=== PATIENT | female | born 2000 | race Caucasian/White ===

== ENCOUNTER → 2022-11-13 15:24 | Outpatient (CLI) | payer OTHER, SELFPAY ==
[2022-11-13 17:43] LABS: Add Manual Diff / Slide Review NO; Basophils Absolute Auto 0 /uL (0-100); Basophils Percent Auto 0.3 % (0-2); Eosinophils Absolute Auto 0 /uL (0-450); Eosinophils Percent Auto 0.5 % (2-4); Hematocrit 37.6 % (36-46); Hemoglobin 12.9 g/dL (12.0-16.0); Lymphocytes Absolute Auto 1500 /uL (1100-4500); Lymphocytes Percent Auto 20.9 % (25-40); Mean Corpuscular HGB Conc 34.3 % (30-36); Mean Corpuscular Hemoglobin 28.8 PG (26-34); Mean Corpuscular Volume 83.8 fL (80-100); Monocytes Absolute Auto 500 /uL (0-900); Monocytes Percent Auto 6.7 % (3-14); Neutrophils Absolute Auto 5200 /uL (1500-7000); Neutrophils Percent Auto 71.6 % (50-75); Platelet Count 182 X10^3/uL (150-400); Red Blood Cell Count 4.49 X10^6/uL (4.0-5.2); Red Cell Distribution Width 14.2 % (11.6-14.8); White Blood Cell Count 7.3 X10^3/uL (4.5-11.0)
[2022-11-15 04:09] LABS: RPR Screen Non Reactive (Non Reactive)
[2022-11-15 11:27] LABS: Varicella IgG Antibody 1784 index (Immune >165)
[2022-11-15 16:25] LABS: Hepatitis B Surface Antigen NEGATIVE s/c (NEGATIVE); Rubella Antibody IgG 59.5 IU/mL (>15)
[2022-11-15 16:41] LABS: HIV 1 & 2 Ab/Ag 4th Gen Combo NEGATIVE (NEGATIVE); Hep C Virus Ab w/Reflex Quant NEGATIVE s/c (NEGATIVE)
== END ==
PROVIDERS: Referring Provider Obstetrics & Gynecology; Visit Provider Obstetrics & Gynecology
DX: Z34.81 Encounter for supervision of other normal pregnancy, first trimester (principal)
CPT/HCPCS: 36415; 80055; 86787; 86803; 86850; 86900; 86901; 87389

== ENCOUNTER → 2023-01-24 08:22 | Outpatient (CLI) | payer OTHER, SELFPAY ==
--- NOTE | 2023-01-24 08:22 | DI.US.S_ITS ---
PROCEDURE: US OB >= 14 WEEKS FETUS INDICATIONS: ANATOMY OUTSIDE/PRIOR DATING DATA: Last menstrual period (LMP): 09/03/2022. LMP-based estimated date of delivery (PATRICIA): 06/10/2023. First dating scan (date and location): 11/13/2022 at . Estimated date of delivery (PATRICIA) from first dating scan: 06/13/2023. The calculations are made using the working PATRICIA of 06/10/2023. TECHNIQUE: Real-time scanning was performed of the fetus, with image documentation and biometric measurements. COMPARISON: [facility], , OB <= 14 WEEKS FETUS, 11/13/2022, 15:06. [facility], , OB LIMITED, 12/29/2022, 12:39. FINDINGS: General: A single living intrauterine gestation is present. Presentation: Vertex. Placenta: Placental position is posterior , without previa. Amniotic fluid index: 14.7 cm, normal range is 5-24 cm. Single deepest vertical pocket is 4.8 cm. heart rate: 145 beats per minute. Maternal cervical canal: 3 point cm long. Normal lower limit is 2.5 cm. biometrics: Biparietal diameter: 20 weeks 4 days Head circumference: 19 weeks 3 days ([place] 8%) Abdominal circumference: 19 weeks 2 days Femur length: 20 weeks 3 days Clinically estimated gestational age: 20 weeks 3 days Composite gestational age from present scan: 20 weeks 0 day Estimated weight and percentile: 317 g; 18% for gestation age. Anatomic survey: Neuro: Ventricles are non-dilated at less than 10 mm. Cisterna magna is normal at 3-11 mm. Cerebellum is normal in size and morphology. Nuchal skin fold: Normal at less than 6 mm between 14-21 weeks gestational age. Face: Nose and lips, facial profile are normal. Spine: No evidence for spina bifida. Heart: 4-chambered heart is present, with normal ventricular outflow tracts. Diaphragm: Diaphragm is intact. Stomach: Left-sided stomach is present. Kidneys: No hydronephrosis. Normal is less than 5 mm in 2nd trimester, less than 7 mm in 3rd trimester. Cord: 3-vessel cord has orthotopic insertion. Bladder: Normal in size. Extremities: All 4 extremities identified. IMPRESSION: 1. A single living intrauterine gestation with appropriate interval growth. 2. Normal anatomic survey. 3. Head circumference at 8% and estimated weight at 18%. We strive to produce accurate, complete, and clear reports of imaging services. To assist us in improving patient care, this report was composed using standard report templates and voice recognition software. Therefore, it may contain abnormal punctuation, insertions and/or omissions. Occasional wrong-word or sound-alike substitutions may occur. Though we review the report and make efforts to correct it, we do recommend that the report be read carefully in proper context to recognize any text inaccuracies. Dictated by: Jayjay Torres M.D. on 01/24/2023 at 16:49 Approved by: Jayjay Torres M.D. on 01/24/2023 at 16:55
== END ==
PROVIDERS: Referring Provider Obstetrics & Gynecology; Visit Provider Obstetrics & Gynecology
DX: Z34.82 Encounter for supervision of other normal pregnancy, second trimester (principal); Z3A.20 20 weeks gestation of pregnancy
CPT/HCPCS: 36415; 76811; 76817; 82105

== ENCOUNTER → 2023-01-24 09:47 | Outpatient (CLI) | payer OTHER, SELFPAY ==
[2023-01-26 21:15] LABS: Gest Age on Col Date 20.4 weeks (.); Insulin Dep Diabetes No (.); OSBR Risk 1IN 10000 (.); Results Report (.); Test Results *Screen Negative* (.)
== END ==
PROVIDERS: Referring Provider Obstetrics & Gynecology; Visit Provider Obstetrics & Gynecology
DX: Z34.92 Encounter for supervision of normal pregnancy, unspecified, second trimester (principal); Z3A.18 18 weeks gestation of pregnancy
CPT/HCPCS: 36415; 82105

== ENCOUNTER → 2023-03-11 13:10 | Outpatient (CLI) | payer OTHER, SELFPAY | PROVIDERS: Visit Provider Obstetrics & Gynecology | DX: Z34.00 Encounter for supervision of normal first pregnancy, unspecified trimester (principal) | CPT/HCPCS: 87086 ==

== ENCOUNTER → 2023-03-13 08:14 | Outpatient (CLI) | payer OTHER, SELFPAY ==
[2023-03-13 10:24] LABS: Hematocrit 36.3 % (36-46); Hemoglobin 12.4 g/dL (12.0-16.0)
[2023-03-13 11:22] LABS: GTT (PREG) 1 Hour PP 50gm Dose 94 mg/dL (76-139)
== END ==
PROVIDERS: Referring Provider Obstetrics & Gynecology; Visit Provider Obstetrics & Gynecology
DX: Z34.02 Encounter for supervision of normal first pregnancy, second trimester (principal); Z3A.26 26 weeks gestation of pregnancy
CPT/HCPCS: 36415; 82950; 85014; 85018

== ENCOUNTER 2023-04-23 11:32 | Outpatient (CLI) | payer OTHER, SELFPAY ==
[2023-04-23 11:47] LABS: Appearance Urine UA SL CLOUDY; Bilirubin Urine UA NEGATIVE (NEGATIVE); Color Urine UA YELLOW; Glucose Urine UA NEGATIVE (Negative); Ketones Urine UA NEGATIVE (NEGATIVE); Leukocyte Esterase Urine UA 3+ (NEGATIVE); Nitrite Urine UA NEGATIVE (Negative); Occult Blood Urine UA NEGATIVE (Negative); Protein Urine UA NEGATIVE (Negative); Urobilinogen Urine UA 0.2 E.U./dL (0.2)
[2023-04-23 11:57] LABS: Bacteria Urine Many (>30); Culture Indicated Urine Specimen Cultured; RBC Urine 0-1/HPF (0-5/HPF); Squamous Epithelial Cell Urine 10-30 /HPF (0-5/HPF); WBC Urine 10-30/HPF (0-5/HPF)
[2023-04-23] MEDS: cefTRIAXone 2,000 MG VIAL 1000 MG IM (12:51)
== END 2023-04-23 13:01 | disposition home or self-care (01) ==
LOC: LABOR 12:37 → OB 04-25 15:05
PROVIDERS: Referring Provider Obstetrics & Gynecology; Visit Provider Obstetrics & Gynecology
DX: O26.893 Other specified pregnancy related conditions, third trimester (principal); R10.9 Unspecified abdominal pain; R25.2 Cramp and spasm; Z3A.33 33 weeks gestation of pregnancy
CPT/HCPCS: 59025; 81001; 87086; 96372; G0378; G0379; J0696

== ENCOUNTER → 2023-05-24 11:38 | Outpatient (CLI) | payer OTHER, SELFPAY ==
[2023-05-25 07:37] LABS: Strep Grp B PCR NEG for Grp B Strep
== END ==
PROVIDERS: Visit Provider Obstetrics & Gynecology
DX: Z34.03 Encounter for supervision of normal first pregnancy, third trimester (principal); Z3A.37 37 weeks gestation of pregnancy
CPT/HCPCS: 87653

== ENCOUNTER 2023-06-03 19:55 | Outpatient (CLI) | payer OTHER, SELFPAY | END 2023-06-03 20:50 | disposition home or self-care (01) | LOC: OB 06-19 08:01 | PROVIDERS: Referring Provider Obstetrics & Gynecology; Visit Provider Obstetrics & Gynecology | DX: O42.92 Full-term premature rupture of membranes, unspecified as to length of time between rupture and onset of labor (principal); Z3A.39 39 weeks gestation of pregnancy | CPT/HCPCS: G0378; G0379 ==

== ENCOUNTER 2023-06-06 19:32 | Outpatient (CLI) | payer OTHER, SELFPAY ==
--- NOTE | 2023-06-06 20:28 | PM.OBTRLD ---
Visit Information Visit Information Date of evaluation: 06/06/23 Primary OB Provider: Patsy Irizarry On-call OB Provider: Haley Glasgow Reason for Evaluation: Yes rule out labor Comments/Additional reasons for admission: Jeanne is a 22yo at 39 weeks 3 days for an evaluation of labor. She was seen in clinic today and was found to be 4cm and abby irregularly, sent over for evaluation. She did not come in until tonight; she continues to feel mild irregular contractions, no vaginal bleeding or leakage of fluid, normal movement. Uncomplicated PRN with Dr. Irizarry. Vital Signs Vital Signs: BP: 111/66 mmHg HR: 90 bpm T: 36.9C PFSH Medical History Myopia Surgical History Anesthesia History of appendectomy [place] teeth extracted Family History Grandmother Diabetes mellitus Mental health problem Grandfather Pancreatic cancer Grandfather Hyperlipidemia Grandmother Hypertension Heart disease Mental health problem Father Hypertension Hyperlipidemia Mental health problem Mother Mental health problem Grandfather Hypertension Social History marital status: number of children: 0 household members: spouse lives independently: Yes caregiver/support person: No housing: apartment pets and animals: Yes (1 cat, managing litter box) education level: high school occupational status: employed current occupational exposures/hazards: No special mechelle needs: No travel history: recent (domestic only) seatbelt use: always water heater temp set < 120 deg: Yes working smoke detector in home: Yes fire extinguisher in home: Yes carbon monox detector in home: Yes firearms in home: No do you feel safe at home: Yes Smoking Status: Never smoker second hand exposure: No alcohol intake: former (rarely when not ) substance use type: does not use during the past year weight has: remained stable well-balanced diet: about half the time daily servings fruits/ve-4 caffeine: Yes (quit with , aware of 200mg limit) Type(s) of exercise: walking and weight lifting Review of Systems Review of Systems ROS: Yes All systems reviewed with the patient and are negative except as otherwise documented Exam Vital Signs (past 8 hours): see above Presentation: vertex Evaluation Evaluation Baseline heart rate: 120 Variability: Moderate (11-25) monitor accelerations: Present Monitor Decelerations: Absent Contraction Frequency (minutes): 10 Uterine Contraction Intensity: Mild Category of Tracing: Reactive Cervical dilation (cm): 4 Cervical effacement (%): 70 station: -2 Diagnosis, Plan/Disposition Final Diagnosis (1) False labor after 37 completed weeks of gestation: Status: Acute Plan/Disposition Plan: P: Discharge to home, routine labor precautions reviewed Encourage patient to call if contractions 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
== END 2023-06-06 20:35 | disposition home or self-care (01) ==
LOC: OB 06-19 08:02
PROVIDERS: Referring Provider Specialist; Visit Provider Specialist
DX: O47.1 False labor at or after 37 completed weeks of gestation (principal); Z3A.39 39 weeks gestation of pregnancy
CPT/HCPCS: 59025; G0378; G0379

== ENCOUNTER 2023-06-08 11:35 | Observation (INO) | payer OTHER, SELFPAY ==
[2023-06-08 13:03] LABS: COVID19 -Nasal RAPID Negative (Negative)
--- NOTE | 2023-06-10 08:08 | P.TNLD_ITS ---
Visit Information Visit Information Date of evaluation: 06/08/23 On-call OB Provider: Howard Thrasher Reason for Evaluation: Yes non-stress test and Yes rupture of membranes Comments/Additional reasons for admission: Patient gives a history decreased motion as well as nausea and vomiting. She also has flu-like symptoms at this time. Upon further questioning she is noted some vaginal discharge. Vital Signs Vital Signs: Blood pressure 102/59 pulse 89 temperature 36.4? PFSH Medical History Myopia Surgical History Anesthesia History of appendectomy [place] teeth extracted Family History Grandmother Diabetes mellitus Mental health problem Grandfather Pancreatic cancer Grandfather Hyperlipidemia Grandmother Hypertension Heart disease Mental health problem Father Hypertension Hyperlipidemia Mental health problem Mother Mental health problem Grandfather Hypertension Social History marital status: number of children: 0 household members: spouse lives independently: Yes caregiver/support person: No housing: apartment pets and animals: Yes (1 cat, managing litter box) education level: high school occupational status: employed current occupational exposures/hazards: No special mechelle needs: No travel history: recent (domestic only) seatbelt use: always water heater temp set < 120 deg: Yes working smoke detector in home: Yes fire extinguisher in home: Yes carbon monox detector in home: Yes firearms in home: No do you feel safe at home: Yes Smoking Status: Never smoker second hand exposure: No alcohol intake: former (rarely when not ) substance use type: does not use during the past year weight has: remained stable well-balanced diet: about half the time daily servings fruits/ve-4 caffeine: Yes (quit with , aware of 200mg limit) Type(s) of exercise: walking and weight lifting Objective Labs Labs: ROM plus was negative COVID-19 test was negative Evaluation Evaluation Variability: Moderate (11-25) monitor accelerations: Present Monitor Decelerations: Absent Contraction Frequency (minutes): 0 Category of Tracing: Reactive Status: Category l Non-invasive Membranes Rupture Test: negative Diagnosis, Plan/Disposition Final Diagnosis (1) Flu: Status: Acute Problem details: Patient has noted some decreased motion. Her NST was very reactive. Her ROM plus was also negative. Have patient encouraged to increase fluids take Tylenol for aches and pains. She is also been told that should things worsen she should return for further evaluation.
== END 2023-06-08 13:20 | disposition home or self-care (01) ==
LOC: LABOR 11:38
PROVIDERS: Admitting Provider Obstetrics & Gynecology; Referring Provider Obstetrics & Gynecology; Visit Provider Obstetrics & Gynecology
DX: J11.1 Influenza due to unidentified influenza virus with other respiratory manifestations (principal); Z20.822 Contact with and (suspected) exposure to COVID-19
CPT/HCPCS: 59025; 84112; 87635; C9803; G0378; G0379

== ENCOUNTER 2023-06-11 03:53 | Inpatient (IN) | payer OTHER, SELFPAY ==
[2023-06-11 05:10] LABS: Add Manual Diff / Slide Review NO; Basophils Absolute Auto 0 /uL (0-100); Basophils Percent Auto 0.6 % (0-2); Eosinophils Absolute Auto 100 /uL (0-450); Hematocrit 36.6 % (36-46); Hemoglobin 12.6 g/dL (12.0-16.0); Lymphocytes Absolute Auto 1300 /uL (1100-4500); Lymphocytes Percent Auto 17.8 % (25-40); Mean Corpuscular HGB Conc 34.3 % (30-36); Mean Corpuscular Hemoglobin 29.9 PG (26-34); Mean Corpuscular Volume 87.1 fL (80-100); Monocytes Absolute Auto 500 /uL (0-900); Neutrophils Absolute Auto 5600 /uL (1500-7000); Neutrophils Percent Auto 73.6 % (50-75); Platelet Count 183 X10^3/uL (150-400); White Blood Cell Count 7.6 X10^3/uL (4.5-11.0)
[2023-06-11] MEDS: LACTATED RINGERS 1,000 ML 100 ML IV ×3 (05:29→13:42)
[2023-06-11] MEDS: AMPICILLIN 2,000 MG in SODIUM CHLORIDE 0.9% 100 ML 200 MG IV (05:30)
[2023-06-11 05:39] VITALS: BP 122/67
--- NOTE | 2023-06-11 07:53 | PM.OBHP.IH.1 ---
OB HPI Date/Time Date of admission: 06/11/23 Date Patient Seen: 06/11/23 Time Patient Seen: 07:54 History of Present Condition Chief complaint: OB PATRICIA Calculator Estimated Delivery Date Method Current WG Current Estimate 06/10/23 LMP (Certain) 40w 1d Other Estimates 06/13/23 Ultrasound #1 39w 5d Estimated Gestational Age (weeks): 40+1 : 1 Para: 0 care: good care, initiated at week # (10), number of visits (11) and pounds weight gain (25) Dating criteria OB: LMP confirmed by 1st trimester US Ultrasounds: normal 1st trimester US and abnormal US findings Abnormal ultrasound findings: 18%ile for growth on anatomic survey, 40%ile in 3rd trimester Obstetrical complications: hyperemesis Medical complications OB: none Preadmission Labs Last OB Lab Results: Blood Type A Positive 06/11/23 04:50 Antibody Screen Negative 06/11/23 04:50 Hematocrit 36.6 % (36-46) 06/11/23 04:50 Hemoglobin 12.6 g/dL (12.0-16.0) 06/11/23 04:50 Hepatitis B Surface Antigen Negative s/c (NEGATIVE) 11/13/22 16:15 Hepatitis C Antibody Negative s/c (NEGATIVE) 11/13/22 16:15 Rubella Antibody 59.5 IU/mL (>15) 11/13/22 16:15 Varicella-Zoster IgG Antibody 1784 index (Immune >165) 11/13/22 16:15 Glucose 1 Hour 94 mg/dL (76-139) 03/13/23 09:31 Group B Streptococcus (PCR) Neg for grp b strep 05/24/23 11:38 -: Chlamydia screen: negative, Gonorrhea screen: negative and Urine: positive (GBS) -: PAP smear: Normal Genetic Screens: Cell-free DNA: Normal (Normal female) and Alpha-fetoprotein: Normal External Labs -: Urine: positive (GBS) Evaluation Evaluation Baseline heart rate: 130 Variability: Moderate (11-25) monitor accelerations: Present Monitor Decelerations: Absent Contraction Frequency (minutes): 6 Uterine Contraction Intensity: Moderate Status: Category l Dilation (cm): 5 Effacement (%): 80 station: -1 [facility] Medical History Myopia Surgical History Anesthesia History of appendectomy [place] teeth extracted Family History Grandmother Diabetes mellitus Mental health problem Grandfather Pancreatic cancer Grandfather Hyperlipidemia Grandmother Hypertension Heart disease Mental health problem Father Hypertension Hyperlipidemia Mental health problem Mother Mental health problem Grandfather Hypertension Social History marital status: number of children: 0 household members: spouse lives independently: Yes caregiver/support person: No housing: apartment pets and animals: Yes (1 cat, managing litter box) education level: high school occupational status: employed current occupational exposures/hazards: No special mechelle needs: No travel history: recent (domestic only) seatbelt use: always water heater temp set < 120 deg: Yes working smoke detector in home: Yes fire extinguisher in home: Yes carbon monox detector in home: Yes firearms in home: No do you feel safe at home: Yes Smoking Status: Never smoker second hand exposure: No alcohol intake: former (rarely when not ) substance use type: does not use during the past year weight has: remained stable well-balanced diet: about half the time daily servings fruits/ve-4 caffeine: Yes (quit with , aware of 200mg limit) Type(s) of exercise: walking and weight lifting Meds Home Medications and Allergies Home Medications Medication Instructions Recorded Confirmed Type prenat.vits,richar,[id number] 1 tab PO DAILY 11/12/22 06/11/23 History ondansetron 4 mg disintegrating 4 mg PO Q6H PRN nausea and 01/02/23 06/06/23 Rx tablet vomiting #20 tabs cephalexin 500 mg capsule 500 mg PO TID #15 caps 04/23/23 06/06/23 Rx Allergies Allergy/AdvReac Type Severity Reaction Status Date / Time No Known Drug Allergies Allergy Unverified 06/06/23 08:28 OB Exam Narrative Exam Narrative: Generally: Patient is sitting up in bed, comfortable with epidural Lungs: Clear to auscultation bilateral Cardiovascular: Regular rate and Fundal height: 40 cm Estimated weight: 7 lb Extremities: No edema Objective Labs 06/11/23 04:50 Labs: Laboratory Results - last 24 hr 06/11/23 06/11/23 04:50 04:50 WBC 7.6 RBC 4.20 Hgb 12.6 Hct 36.6 MCV 87.1 MCH 29.9 MCHC 34.3 RDW 14.0 Plt Count 183 Neut % (Auto) 73.6 Lymph % (Auto) 17.8 L Coleman % (Auto) 7.0 Eos % (Auto) 1.0 L Baso % (Auto) 0.6 Neut # (Auto) 5600 Lymph # (Auto) 1300 Coleman # (Auto) 500 Eos # (Auto) 100 Baso # (Auto) 0 Blood Type A Positive Antibody Screen Negative Assessment and Plan Assessment and Plan Assessment and Plan narrative: Assessment: 22-year-old 1 para 0 at 40-,1/7 weeks gestation in active labor Comfortable with epidural Group B strep bacteriuria, status post 1 dose of antibiotic Plan: AROM once second dose of antibiotics received Expected management to spontaneous vaginal delivery Time Spent with Patient Total time spent with greater than 50% in coordination of care (as documented) at patient's floor/unit and/or counseling patient:: 15-24 minutes
--- NOTE | 2023-06-11 08:01 | PM.ANES.PR ---
Operative Date/Time/Diagnoses Date of procedure: 06/11/23 Time of procedure: 06:55 Pre-op diagnosis: Labor pain Post-op diagnosis: same Note Patient is a 22 year old requesting labor epidural
--- NOTE | 2023-06-11 08:06 | PM.AN.REGBLK ---
Regional Block Pre-procedure Procedure: Continuous Lumbar Epidural for L&D Attending OB provider: Patsy Irizarry PMH/ROS narrative: Healthy, 22 year old requesting labor epidural for labor pain. Hx: No personal or family history of anesthesia problems. Exam narrative: Mallampati: m1, good neck ROM, T.M. > 3cm Labs: Hct 36.6 % (36-46) 06/11/23 04:50 Plt Count 183 X10^3/uL (150-400) 06/11/23 04:50 Medications: Current Medications Generic Name Dose Route Start Last Admin Trade Name Freq PRN Reason Stop Dose Admin Carboprost Tromethamine 250 mcg 06/11/23 05:04 Carboprost 250 Mcg/Ml Ampul IM Q90M PRN Bleeding Diphenhydramine HCl 25 mg 06/11/23 07:58 Diphenhydramine 50 Mg/Ml Vial IV Q10M PRN Pruritis Fentanyl 100 mcg 06/11/23 05:04 Fentanyl 100 Mcg/2 Ml Inj IV Q1H PRN Pain, Severe (7-10) Lactated Ringer's 1,000 mls @ 100 mls/hr 06/11/23 05:15 06/11/23 05:29 Lactated Ringers IV 100 mls/hr CONT GISELLE Administration Oxytocin/Lactated Ringer's 30 unit in 500 mls @ 200 mls/hr 06/11/23 05:04 Oxytocin Premix IV CONT PRN Bleeding Protocol Ampicillin Sodium 1,000 mg/ 100 mls @ 200 mls/hr 06/11/23 05:15 Sodium Chloride IV Q4H GISELLE Tranexamic Acid 1,000 mg/ 100 mls @ 200 mls/hr 06/11/23 05:04 Sodium Chloride IV NOW PRN Bleeding FENT 2MCG/ML BUPIV 0.1% EPI 200 mcg in 100 mls @ 6 mls/hr 06/11/23 08:00 Fentanyl/Bupiv/Ns 2mcg/Ml - 0.1% EPIDURAL CONT GISELLE Lidocaine HCl 20 ml 06/11/23 05:04 Lidocaine 1% 20 Ml INJ INTRA-OP PRN Post Delivery Methylergonovine Maleate 0.2 mg 06/11/23 05:04 Methylergonovine 0.2 Mg/Ml Vial IM NOW PRN Bleeding Methylergonovine Maleate 0.2 mg 06/11/23 05:04 Methylergonovine 0.2 Mg Tablet PO Q6HR PRN Heavy Bleeding Misoprostol 800 mcg 06/11/23 05:04 Misoprostol 200 Mcg Tablet TX NOW PRN Bleeding Misoprostol 400 mcg 06/11/23 05:04 Misoprostol 200 Mcg Tablet SL NOW PRN Bleeding Naloxone HCl 0.2 mg 06/11/23 05:04 Naloxone 0.4 Mg/Ml Vial IV Q2MIN PRN Opiate Reversal Oxytocin 10 unit 06/11/23 05:04 Oxytocin 10 Unit/Ml Vial IM NOW PRN Bleeding Allergies: Allergies Allergy/AdvReac Type Severity Reaction Status Date / Time No Known Drug Allergies Allergy Unverified 06/06/23 08:28 Procedure Insertion date: 06/11/23 Insertion time: 07:00 Prep/Local: 1% lidocaine (prep with Chloroprep) Interspace: L4-5 Patient position: sitting Needle: 18 gauge Hustead Loss of resistance with: saline EJ at (cm): 4 Catheter placed at SKIN (cm): 9 Catheter in SPACE (cm): 5 Sensory level: T10 Insertion: No CSF, No Blood, No Paresthesia with insertion, No Paresthesia with injection and No Test dose reaction Initial Medications TEST DOSE time: 07:06 TEST DOSE: 1.5% lidocaine with epinephrine 1:200k (mL): 5 BOLUS DOSE time: 07:07 BOLUS DOSE (mL): 5 BOLUS DOSE med: other (2% Lidocaine) Infusion INFUSION: 0.125% bupivacaine and with fentanyl 2 mcg/mL Initial rate (mL/hr): 8 Post-procedure Anesthesia time START: 07:00 Anesthesia time END: 14:28 Post-procedure Anesthesia Assessment: Yes CV function: HR/BP stable, Yes Resp function: RR/sat/airway adequate, Yes Post-op hydration adequate, Yes Pain control adequate, Yes Nausea & vomiting absent, Yes Temperature > 36 C and Yes Mental status appropriate
[2023-06-11] MEDS: OXYTOCIN PREMIX 30 UNIT/500 ML PLAST..BAG IV (08:58)
[2023-06-11] MEDS: FENT 2MCG/ML BUPIV 0.1% EPI 200 MCG/100 ML PLAST..BAG 6 MCG EPIDURAL ×2 (08:58→14:12)
[2023-06-11] MEDS: AMPICILLIN 1,000 MG in SODIUM CHLORIDE 0.9% 100 ML 200 MG IV ×2 (09:36→13:42)
--- NOTE | 2023-06-11 10:57 | PM.OBPNLAB ---
Date/Time Date Patient Seen: 06/11/23 Time Patient Seen: 10:40 Pelvic Exam Dilation (cm): 6 Effacement (%): 80 station: -1 Contractions Monitor mode: External Contraction frequency (min): 3 Contraction intensity: Moderate Status status: Category l Heart Rate Baseline: 135 Monitor Accelerations: Present Monitor Decelerations: Absent Monitor Variability: Moderate Assessment and Plan Assessment: active labor Plan: continuous present management Comments: AROM once second dose of antibiotics in Epidural as necessary Expected management to spontaneous vaginal
[2023-06-11] MEDS: METHYLERGONOVINE 0.2 MG/ML VIAL IM (15:34)
[2023-06-11] MEDS: ACETAMINOPHEN 325 MG TABLET 650 MG PO (20:10)
[2023-06-11] MEDS: LANOLIN OINT 7 GM 1 APPLIC TOP (20:10)
[2023-06-11] MEDS: IBUPROFEN 600 MG TABLET PO (20:10)
[2023-06-11] MEDS: DERMOPLAST SPRAY 20% 60 ML 1 SPRAY TOP (20:11)
--- NOTE | 2023-06-11 20:19 | PM.OBPRVD ---
Labor & Delivery Delivery date: 06/11/23 Intrapartal Events: Intolerance and Deceleration (Various) Cervical ripening method: none Induction method: none Delivery augmentation: rupture of membranes Delivery monitor: external FHT and external uterine Route of delivery: vacuum extraction Indication for instrumentation: nonreassuring FHR tracing Episiotomy description: None L&D Laceration Description: Perineal - 2nd Degree and Vaginal - 2nd Degree Delivery repair: vicryl and chromic Quantitative Blood Loss: 175 Anesthesia Type: Epidural Complications: Nine Narrative: Patient complete and pushed for 2 hours. A vacuum was applied with 1 pull due to deep variable decelerations with pushing. Vertex delivered in the EVANS presentation over an intact perineum at 2:28 p.m.. There was a tight nuchal cord x2 which was cut on the perineum. The remainder of the body delivered without difficulty and was placed on mom's abdomen. The cord was double clamped and cut. Cord bloods were obtained. A piece of cord for cord pH was obtained. The placenta delivered intact with a three-vessel cord at 2:32 p.m.. Pitocin was given in the IV fluids prior to placental delivery. A second-degree vaginal/perineal laceration was repaired in the usual fashion. QBL 175 cc. Apgars 8 at 1 minute and 9 at 5 minutes. Epidural analgesia. . Mom and stable to recovery. [place] Baby 1: gender: Female Presentation: vertex Position: Right Occiput Anterior Placenta delivery description: Spontaneous Cord Vessel Description: Nuchal Cord (x2), Tight and Clamped/Cut score (1 min): 8 score (5 min): 9 weight: 7 lb 0.4 oz Plan for aftercare: Routine care
[2023-06-12] MEDS: ACETAMINOPHEN 325 MG TABLET 650 MG PO ×3 (01:58→18:45)
[2023-06-12] MEDS: IBUPROFEN 600 MG TABLET PO ×3 (01:58→18:44)
[2023-06-12] MEDS: DOCUSATE 100 MG CAPSULE PO (10:45)
[2023-06-12] MEDS: PRENATAL VIT,CALC/IRON/FOLIC 1 TABLET 1 TAB PO (10:46)
[2023-06-13] MEDS: ACETAMINOPHEN 325 MG TABLET 650 MG PO ×2 (04:29→12:13)
[2023-06-13] MEDS: IBUPROFEN 600 MG TABLET PO ×2 (04:30→12:13)
[2023-06-13 06:33] LABS: Hematocrit 31.4 % (36-46); Hemoglobin 10.9 g/dL (12.0-16.0)
[2023-06-13 11:14] VITALS: BP 106/68; PULSE 83; RESP 16; TEMP 36.4
--- NOTE | 2023-06-15 21:20 | PM.OBPN.1 ---
Subjective - OB Subjective Patient comments: other (Severe nipple pain) [place] baby status: doing well feeding status: breast and bottle feeding Date Patient Seen: 06/12/23 Time Patient Seen: 08:30 Interval history: PPD #1 s/p VAVD Severe nipple pain. Exam Narrative Exam Narrative: Generally: Sitting up in bed, NAD Fundus: Firm U/-1 Ext: Trace edema, neg Yane's Objective Labs 06/13/23 06:24 Assessment & Plan Plan day: 1 plan OB: routine care Comments: consultation Anticipate d/c 06/13 Time Spent With Patient Time: Total time spent is greater than 50% in coordination of care (as documented) at patient's floor/unit and/or counseling patient: Time with patient: 15-24 minutes
--- NOTE | 2023-06-19 12:37 | PM.OBDS.1 ---
Discharge Providers Provider Date of admission: 06/11/23 03:53 Discharge Date: 06/13/23 Primary care physician: Saman MARCUS Provider Consults: 06/11/23 05:04 Consult to Anesthesiology Urgent Comment: Consulting Provider: Anesthesiologist Reason for consultation: Epidural 06/12/23 18:38 Consult to Director Of Research [facility] Routine Comment: Discharge provider: Patsy Irizarry MD Summary Hospital Course Date Patient Seen: 06/13/23 Time Patient Seen: 09:45 Diagnoses: 40+1 weeks gestation Vacuum assisted vaginal delivery Epidural analgesia Second degree vaginal/perineal laceration GBS positive Hospital Course: Patient is a 22 year old who presented on 06/11/23 in active labor. She received antibiotic prophylaxis for GBS. AROM was performed after second dose of antibiotics. She progressed to complete dilation. Vacuum assist was performed due to deep variable decels with pushing. A second degree vaginal/perineal laceration repair was performed. Her post course was complicated by issues. She was discharged on 06/13/23. Peripartum Data Infant Delivery Method: Assisted Delivery (vacuum) Laceration Description: Perineal - 2nd Degree and Vaginal - 2nd Degree Episiotomy description: None Procedures: GBS prophylaxis Artificial rupture of membranes Vacuum assisted vaginal delivery Repair of second degree vaginal/perineal laceration complications: none 1: Gender: Female Disposition of : home Status at Discharge Cognitive/behavioral status at discharge: oriented Functional status at discharge: independent ambulation Overall status at discharge: patient is progressing back to baseline Time Spent with Patient Time attestation: Total time spent providing and/or coordinating discharge services: Time spent: Less than 30 minutes Objective Labs 06/13/23 06:24 Exam Narrative Exam Narrative: General: Walking around the room, NAD Fundus: Firm U/-1 Perineum: Intact Discharge Plan Discharge Plan Patient Disposition: Home Provider Discharge Comment: Call with fever, chills or bleeding vaginally more than a pad in an hour Push oral fluids Discharge orders & Medications Prescriptions: Continued prenat.vits,richar,[id number] Tablet 1 tab PO DAILY Discontinued ondansetron 4 mg tablet,disintegrating 4 mg PO Q6H PRN (Reason: nausea and vomiting) Qty: 20 2RF cephalexin 500 mg capsule 500 mg PO TID Qty: 15 0RF Follow up/Referrals: Patsy Irizarry MD [Physician] - 6 Weeks (Please follow up with Dr. Irizarry on July 25, @ 11:00 for your post- check-up. ) Diet/Activity/Treatments Diet: Regular Activity: Nothing in the vagina for 6 weeks Skin/Wound/Dressing Care Report to your healthcare provider any signs of infection, such as:: chills, fever, increased pain and unusual drainage Visit Report/Discharge Packet Instructions: DI for Labor and Delivery, Vaginal Stand Alone Forms: Discharge: Care, Patient Portal/API, Stroke Signs & Symptoms Discharge Data Primary Care Provider: ProviderSaman Discharges patient from system. Discharge Date/Time: 06/13/23 13:25
== END 2023-06-13 13:25 | disposition home or self-care (01) | DRG 807 ==
PROVIDERS: Obstetrics & Gynecology; Admitting Provider Specialist; Referring Provider Specialist; Visit Provider Specialist
DX: O76 Abnormality in fetal heart rate and rhythm complicating labor and delivery (principal); Z37.0 Single live birth; O99.824 Streptococcus B carrier state complicating childbirth; Z3A.40 40 weeks gestation of pregnancy; O70.1 Second degree perineal laceration during delivery
CPT/HCPCS: 36415; 59050; 59400; 59409; 85014; 85018; 85025; 86850; 86900; 86901; G0379; J0290; J2210; J2590